=== PATIENT | male | born 1960 | race Caucasian/White ===

== ENCOUNTER 2022-03-02 09:02 | Emergency (ER) | payer OTHER, BC ==
[2022-03-02] MEDS ORDERED: Iopamidol 612 MG/ML 100 ML Bottle IVPUSH ONE (09:26)
[2022-03-02] MEDS ORDERED: Diphtheria,Pertussis(Acell),Tetanus Vaccine 0.5 ML Syringe IM ONE (09:43)
[2022-03-02 09:53] LABS: ANION GAP 11.1 mEq/L (7-13); CHLORIDE,CL 106 mmol/L (98-107); SODIUM,NA 141 mmol/L (136-145)
[2022-03-02 09:56] LABS: ESTIMATED GFR > 60
[2022-03-02] MEDS ORDERED: Bacitracin Oint 1 GM U/D Packet TOP ONE (09:56)
[2022-03-02] MEDS ORDERED: Cyclobenzaprine 10 MG Tab PO ONE (10:59)
[2022-03-02] MEDS ORDERED: Acetaminophen 325 MG Tab PO ONE (10:59)
== END 2022-03-02 11:39 | disposition home or self-care (01) ==
LOC: DL.ED 09:02
DX: S51.831A Puncture wound without foreign body of right forearm, initial encounter (principal); S01.312A Laceration without foreign body of left ear, initial encounter; S16.1XXA Strain of muscle, fascia and tendon at neck level, initial encounter; S40.211A Abrasion of right shoulder, initial encounter; S80.211A Abrasion, right knee, initial encounter; S70.311A Abrasion, right thigh, initial encounter; V49.40XA Driver injured in collision with unspecified motor vehicles in traffic accident, initial encounter; Y92.410 Unspecified street and highway as the place of occurrence of the external cause
CPT/HCPCS: 36415; 70450; 71260; 72125; 74177; 80053; 80307; 82150; 83690; 84484; 85025; 85610; 86850; 86900; 86901; 93005; 99285; Q9967; 90715; 93010; 99284; A9270-GY

== ENCOUNTER 2022-03-14 14:59 | Emergency (ER) | payer OTHER, BC | END 2022-03-14 18:36 | disposition home or self-care (01) | LOC: DL.ED 14:59 | DX: S12.120K Other displaced dens fracture, subsequent encounter for fracture with nonunion (principal); Z88.0 Allergy status to penicillin; V49.40XA Driver injured in collision with unspecified motor vehicles in traffic accident, initial encounter; Y92.410 Unspecified street and highway as the place of occurrence of the external cause | CPT/HCPCS: 99283 ==